=== PATIENT | male | born 1975 | race Caucasian/White ===

== ENCOUNTER 2019-09-29 18:56 | Emergency (ER) | payer BC ==
[2019-09-29 19:01] VITALS: TEMP 97.8
[2019-09-29] MEDS ORDERED: SODIUM CHLORIDE 0.9% 1,000 ML IV STA (20:08)
[2019-09-29] MEDS ORDERED: KETOROLAC 30 MG/ML 1 ML VIAL IVP STA (20:08)
--- NOTE | 2019-09-29 20:33 | ED ---
General Adult HPI - General Chief complaint: Abdominal Pain Stated complaint: Abd pain Time Seen by Provider: 09/29/19 19:46 Source: patient, RN notes reviewed Mode of arrival: ambulatory Limitations: no limitations - History of Present Illness Initial comments: 44-year-old male presents to the emergency department for a chief complaint of upper abdominal pain. This has been ongoing since this afternoon around 3:00 PM. States it comes in waves. Patient states that this feels exactly like his "gallbladder attacks". States that he had his gallbladder removed in June through another health system. He states that his follow-ups have all been n ormal. He states he did have the ducts checked and there were no stones after the surgery. Patient states the pain earlier caused him to have some nausea as well. He states he has felt bloated all week and that also proceeded his previous gallbladder attack.Patient has no other complaints at this time including shortness of breath, chest pain, nausea or vomiting, headache, or visual changes. - Related Data Allergies Allergy/AdvReac Type Severity Reaction Status Date / Time Penicillins Allergy Unknown Verified 09/29/19 19:01 Childhood Review of Systems ROS Statement: Those systems with pertinent positive or pertinent negative responses have been documented in the HPI. ROS Other: All systems not noted in ROS Statement are negative. Past Medical History Past Medical History: No Reported History, Cancer History of Any Multi-Drug Resistant Organisms: None Reported Past Surgical History: Cholecystectomy Past Psychological History: No Psychological Hx Reported Smoking Status: Never smoker Past Alcohol Use History: None Reported Past Drug Use History: None Reported General Exam Limitations: no limitations General appearance: alert, in no apparent distress Head exam: Present: atraumatic, normocephalic, normal inspection Eye exam: Present: normal appearance, PERRL, EOMI. Absent: scleral icterus, conjunctival injection, periorbital swelling ENT exam: Present: normal exam, mucous membranes moist Neck exam: Present: normal inspection. Absent: tenderness, meningismus, lymphadenopathy Respiratory exam: Present: normal lung sounds bilaterally. Absent: respiratory distress, wheezes, rales, rhonchi, stridor Cardiovascular Exam: Present: regular rate, normal rhythm, normal heart sounds. Absent: systolic murmur, diastolic murmur, rubs, gallop, clicks GI/Abdominal exam: Present: soft, normal bowel sounds. Absent: distended, tende rness, guarding, rebound, rigid Neurological exam: Present: alert, oriented X3, CN II-XII intact Course Vital Signs 09/29/19 18:57 Temperature 97.8 F Pulse Rate 82 Respiratory 17 Rate Blood Pressure 119/79 O2 Sat by Pulse 98 Oximetry Medical Decision Making - Medical Decision Making CBC unremarkable. CMP does show mild transaminitis however I do not have a comparison for patient. Urinalysis unremarkable. Abdomen ultrasound was initially ordered which revealed a negative exam. Bile duct measures within normal limits post cholecystectomy. CT abdomen and pelvis is negative. Bile ducts are not dilated. Liver spleen and pancreas appear normal. Patient reevaluated and is pain-free at this time. He does request a dose of Dilaudid before he leaves because he is concerned the pain may recur. I discussed that he needs to follow up with his surgeon tomorrow. I discussed that he needs to return here if you've any worsening symptoms that she does agree with. He will also follow up with primary care for repeat liver enzymes. - Lab Data Result diagrams: 09/29/19 20:30 09/29/19 20:30 Lab Results 09/29/19 09/29/19 09/29/19 Range/Units 20:30 20:30 20:30 WBC 9.6 (3.8-10.6) k/uL RBC 4.83 (4.30-5.90) m/uL Hgb 14.3 (13.0-17.5) gm/dL Hct 42.5 (39.0-53.0) % MCV 87.9 (80.0-100.0) fL MCH 29.6 (25.0-35.0) pg MCHC 33.7 (31.0-37.0) g/dL RDW 12.9 (11.5-15.5) % Plt Count 261 (150-450) k/uL Neutrophils % 69 % Lymphocytes % 23 % Monocytes % 5 % Eosinophils % 1 % Basophils % 1 % Neutrophils # 6.6 (1.3-7.7) k/uL Lymphocytes # 2.2 (1.0-4.8) k/uL Monocytes # 0.5 (0-1.0) k/uL Eosinophils # 0.1 (0-0.7) k/uL Basophils # 0.1 (0-0.2) k/uL Sodium 142 (137-145) mmol/L Potassium 4.3 (3.5-5.1) mmol/L Chloride 109 H (98-107) mmol/L Carbon Dioxide 22 (22-30) mmol/L Anion Gap 11 mmol/L BUN 12 (9-20) mg/dL Creatinine 0.75 (0.66-1.25) mg/dL Est GFR (CKD-EPI)AfAm >90 (>60 ml/min/1.73 sqM) Est GFR (CKD-EPI)NonAf >90 (>60 ml/min/1.73 sqM) Glucose 108 H (74-99) mg/dL Calcium 9.2 (8.4-10.2) mg/dL Total Bilirubin 1.3 (0.2-1.3) mg/dL AST 337 H (17-59) U/L ALT 157 H (4-49) U/L Alkaline Phosphatase 97 (38-126) U/L Total Protein 7.9 (6.3-8.2) g/dL Albumin 4.7 (3.5-5.0) g/dL Amylase 64 (30-110) U/L Lipase 142 (23-300) U/L Urine Color Yellow Urine Appearance Clear (Clear) Urine pH 7.0 (5.0-8.0) Ur Specific [place] 1.010 (1.001-1.035) Urine Protein Negative (Negative) Urine Glucose (UA) Negative (Negative) Urine Ketones Negative (Negative) Urine Blood Negative (Negative) Urine Nitrite Negative (Negative) Urine Bilirubin Negative (Negative) Urine Urobilinogen 2.0 (<2.0) mg/dL Ur Leukocyte Esterase Negative (Negative) Disposition Clinical Impression: Abdominal pain Disposition: HOME SELF-CARE Condition: Good Instructions (If sedation given, give patient instructions): Abdominal Pain (ED) Additional Instructions: Please follow up with primary care for repeat liver enzymes. Follow-up with surgeon as soon as possible. If you have any worsening symptoms return to the emergency department. Is patient prescribed a controlled substance at d/c from ED?: No Referrals: Roosevelt Thomas MD [Primary Care Provider] - 1-2 days Time of Disposition: 00:01
[2019-09-29 20:47] LABS: Basophils # (A) 0.1 k/uL (0-0.2); Basophils % (A) 1 %; Eosinophils # (A) 0.1 k/uL (0-0.7); Eosinophils % (A) 1 %; HCT 42.5 % (39.0-53.0); HGB 14.3 gm/dL (13.0-17.5); Lymphocytes # (A) 2.2 k/uL (1.0-4.8); Lymphocytes % (A) 23 %; MCH 29.6 pg (25.0-35.0); MCHC 33.7 g/dL (31.0-37.0); MCV 87.9 fL (80.0-100.0); Mean Platelet Volume 6.4; Monocytes # (A) 0.5 k/uL (0-1.0); Monocytes % (A) 5 %; Neutrophils # (A) 6.6 k/uL (1.3-7.7); Neutrophils % (A) 69 %; Platelet Count 261 k/uL (150-450); RBC 4.83 m/uL (4.30-5.90); RDW 12.9 % (11.5-15.5); WBC 9.6 k/uL (3.8-10.6)
[2019-09-29 20:48] LABS: Appearance,Urine Clear (Clear); Bilirubin,Urine Negative (Negative); Blood,Urine Negative (Negative); Color,Urine Yellow; Glucose,Urine (UA) Negative (Negative); Ketones,Urine Negative (Negative); Leukocyte Esterase,Urine Negative (Negative); Nitrite,Urine Negative (Negative); Protein,Urine Negative (Negative)
[2019-09-29 20:58] LABS: ALT 157 U/L (4-49); AST 337 U/L (17-59); African American GFR (CKD) >90 (>60 ml/min/1.73 sqM); Albumin 4.7 g/dL (3.5-5.0); Alkaline Phosphatase 97 U/L (38-126); Amylase 64 U/L (30-110); Anion Gap 11 mmol/L; Blood Urea Nitrogen 12 mg/dL (9-20); Calcium 9.2 mg/dL (8.4-10.2); Carbon Dioxide 22 mmol/L (22-30); Chloride 109 mmol/L (98-107); Glucose 108 mg/dL (74-99); Non-African American GFR(CKD) >90 (>60 ml/min/1.73 sqM); Sodium 142 mmol/L (137-145); Total Bilirubin 1.3 mg/dL (0.2-1.3); Total Protein 7.9 g/dL (6.3-8.2)
[2019-09-29 21:07] LABS: Potassium 4.3 mmol/L (3.5-5.1)
[2019-09-29] MEDS ORDERED: HYDROmorphone 0.5 MG/0.5 ML SYRINGE IVP STA ×2 (21:09→23:59)
--- NOTE | 2019-09-29 21:44 | XR ---
EXAMINATION TYPE: XR KUB 2 views DATE OF EXAM: 09/29/2019 9:04 PM CLINICAL HISTORY: Abdominal pain, epigastric. History colitis TECHNIQUE: 2 upright views COMPARISON: None. FINDINGS: The visualized lung bases and pleural spaces are negative. The stomach is fluid-filled. There is no pneumoperitoneum or pneumatosis. There is excessive volume of stool throughout the colon. There is no bowel obstruction. No acute skeletal or soft tissue findings. IMPRESSION: No definite acute radiographic process.
--- NOTE | 2019-09-29 21:57 | US ---
EXAMINATION TYPE: US abdomen limited DATE OF EXAM: 09/29/2019 COMPARISON: NONE CLINICAL HISTORY: RUQ, yury 4 months ago, transaminitis. RUQ pain x 7 hours. Hx cholecystectomy 4 mo nths ago. Transaminitis. EXAM MEASUREMENTS: Liver Length: 16.2 cm Gallbladder Wall: Cholecystectomy CBD: 0.80 cm Right Kidney: 11.0 x 5.3 x 4.5 cm Limited visualization due to overlying bowel gas. Pancreas: Obscured by overlying bowel gas. Liver: No abnormalities seen. Evidence for sonographic Elizabeth's sign: No CBD: Measures wnl post-cholecystectomy. Right Kidney: No hydronephrosis or masses seen IMPRESSION: Negative examination.
--- NOTE | 2019-09-29 23:16 | CT ---
EXAMINATION TYPE: CT abdomen pelvis w con DATE OF EXAM: 09/29/2019 COMPARISON: None HISTORY: epigastric abd pain CT DLP: 1377.5 mGycm Automated exposure control for dose reduction was used. CONTRAST: Performed with IV Contrast, patient injected with 100 mL of Isovue 300. Multiple axial sections were obtained from the diaphragm to the floor the pelvis with intravenous con trast Isovue 100 mL. FINDINGS: Lung bases are clear. There is no pleural effusion. Heart size is normal. There is no pericardial eff usion. Stomach appears normal. Liver spleen pancreas appear normal. There are clips from cholecystectomy. Bile ducts are not dilated . There is no adrenal mass. Kidneys show satisfactory contrast opacification. There is no hydronephrosi s. Appendix appears normal. There is no mesenteric edema. There is no ascites or free air. There is no sign of a bowel obstructio n. Lumbar vertebra have normal spacing and alignment. There is no compression fracture. Bony pelvis appe ars intact. IMPRESSION: Negative CT scan of the abdomen and pelvis. Normal appendix.
[2019-09-30 00:11] VITALS: BP 111/81; PULSE 65; RESP 16
== END 2019-09-30 00:16 | disposition home or self-care (01) ==
LOC: EC 18:56
DX: R10.10 Upper abdominal pain, unspecified (principal); R11.0 Nausea; R74.0 Nonspecific elevation of levels of transaminase and lactic acid dehydrogenase [LDH]; Z90.49 Acquired absence of other specified parts of digestive tract; Z88.0 Allergy status to penicillin
CPT/HCPCS: 36415; 80053; 82150; 83690; 85025; 81003; 74018; 76705; 74177; 99284; 96374; 96375; 96376; 96361; J1885; J1170 ×2; Q9967